=== PATIENT | female | born 1990 | race Caucasian/White ===

== ENCOUNTER 2016-10-27 01:02 | Emergency (ER) | payer OTHER ==
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
--- NOTE | 2016-10-27 05:42 | ED ORDER SUMMARY ---
..... Patient: VERONIKA LAZCANO OrderSheet [facility] VisitID: [id number] [place] [address] 26y, F Registration Date/Time: 10/27/2016 ORDER SHEET Weight: 56.6 kg (stated) Allergies: Penicillins GENERAL ORDERS: CBC w Diff Urgent (10/27/2016 Ronn TEJEDA) (Ack 1:47 CHagerty ER Therapeutic Specialist) (2:00 CFalkner R.N.) CMP Urgent (10/27/2016 Ronn TEJEDA) (Ack 1:47 CHagerty ER Therapeutic Specialist) (2:00 CFalkner R.N.) UA-Culture if indicated Urgent (10/27/2016 Ronn TEJEDA) (Ack 1:47 Jose ER Therapeutic Specialist) (2:00 CFalkner R.N.) Amylase Urgent (10/27/2016 Ronn TEJEDA) (Ack 1:47 CHagmike ER Therapeutic Specialist) (2:00 CFalkner R.N.) Lipase Urgent (10/27/2016 Ronn TEJEDA) (Ack 1:47 CHagmike ER Therapeutic Specialist) (2:00 CFalkner R.N.) Urine Urgent (10/27/2016 Ronn TEJEDA) (Ack 1:47 CHagmike ER Therapeutic Specialist) (2:00 CFalkner R.N.) Urine Drug Screen Urgent (10/27/2016 Ronn TEJEDA) (Ack 1:47 CHagmike ER Therapeutic Specialist) (2:00 CFalkner R.N.) Ethyl Alcohol Urgent (:10/27/2016 Ronn TEJEDA) (Ack 1:47 Jose ER Therapeutic Specialist) (2:00 CFalkner R.N.) Acetaminophen Level Urgent (10/27/2016 Ronn TEJEDA) (Ack 1:47 CHagmike ER Therapeutic Specialist) (2:00 CFalkner R.N.) Salicylate Level Urgent (10/27/2016 Ronn TEJEDA) (Ack 1:47 CHagmike ER Therapeutic Specialist) (2:00 CFalkner R.N.) Suicide Precautions (01:41 10/27/2016 Ronn TEJEDA) (Ack 1:47 CHagmike ER Therapeutic Specialist) (2:01 Mandy Emery) EKG - ER Stat (02:09 10/27/2016 Ronn TEJEDA) (2:18 IJurca ER Tech1) MEDICATION ORDERS: IV FLUIDS: ORDER SHEET NOTES: [Electronically signed by Lily Elder R.N. (06:54 10/27/2016)] [Electronically signed by Chidi Bowman MD (10:19 11/15/2016)] [Electronically locked/signed by Lily Elder R.N. (06:54 10/27/2016)]
--- NOTE | 2016-10-27 05:42 | ED ORDER SUMMARY ---
..... Patient: VERONIKA LAZCANO OrderSheet [facility] VisitID: [id number] [place] [address] 26y, F Registration Date/Time: 10/27/2016 ORDER SHEET Weight: 56.6 kg (stated) Allergies: Penicillins GENERAL ORDERS: CBC w Diff Urgent (10/27/2016 Ronn TEJEDA) (Ack 1:47 CHagerty ER Dynamometer Tester Engine) (2:00 CFalkner R.N.) CMP Urgent (10/27/2016 Ronn TEJEDA) (Ack 1:47 CHagerty ER Dynamometer Tester Engine) (2:00 CFalkner R.N.) UA-Culture if indicated Urgent (10/27/2016 Ronn TEJEDA) (Ack 1:47 Jose ER Dynamometer Tester Engine) (2:00 CFalkner R.N.) Amylase Urgent (10/27/2016 Ronn TEJEDA) (Ack 1:47 CHagmike ER Dynamometer Tester Engine) (2:00 CFalkner R.N.) Lipase Urgent (10/27/2016 Ronn TEJEDA) (Ack 1:47 CHagmike ER Dynamometer Tester Engine) (2:00 CFalkner R.N.) Urine Urgent (10/27/2016 Ronn TEJEDA) (Ack 1:47 CHagmike ER Dynamometer Tester Engine) (2:00 CFalkner R.N.) Urine Drug Screen Urgent (10/27/2016 Ronn TEJEDA) (Ack 1:47 CHagmike ER Dynamometer Tester Engine) (2:00 CFalkner R.N.) Ethyl Alcohol Urgent (:10/27/2016 Ronn TEJEDA) (Ack 1:47 Jose ER Dynamometer Tester Engine) (2:00 CFalkner R.N.) Acetaminophen Level Urgent (10/27/2016 Ronn TEJEDA) (Ack 1:47 CHagmike ER Dynamometer Tester Engine) (2:00 CFalkner R.N.) Salicylate Level Urgent (10/27/2016 Ronn TEJEDA) (Ack 1:47 CHagmike ER Dynamometer Tester Engine) (2:00 CFalkner R.N.) Suicide Precautions (01:41 10/27/2016 Ronn TEJEDA) (Ack 1:47 CHagmike ER Dynamometer Tester Engine) (2:01 Mandy Emery) EKG - ER Stat (02:09 10/27/2016 Ronn TEJEDA) (2:18 IJurca ER Tech1) MEDICATION ORDERS: IV FLUIDS: ORDER SHEET NOTES: [Electronically signed by Lily Elder R.N. (06:54 10/27/2016)] [Electronically signed by Chidi Bowman MD (10:19 11/15/2016)] [Electronically locked/signed by Lily Elder R.N. (06:54 10/27/2016)]
--- NOTE | 2016-11-15 10:19 | ED MED RECONCILIATION SUMMARY ---
Patient: VERONIKA LAZCANO Medication Reconciliation Report [facility] VisitID: [id number] [address] [place] [address] 26y, F Registration Date/Time: 10/27/2016 Weight: 56.6 kg Height/Length: 61 in. BMI: 23.6 ALLERGIES: Penicillins The patient's Home Medications are listed below: NONE. The source(s) of the original Home Medication information: Not obtained. The following Medications were given to the patient in the Emergency Department: None. The following Medications were prescribed to the patient: None.
--- NOTE | 2016-11-15 10:19 | ED MED RECONCILIATION SUMMARY ---
Patient: VERONIKA LAZCANO Medication Reconciliation Report [facility] VisitID: [id number] [address] [place] [place] [address] 26y, F Registration Date/Time: 10/27/2016 Weight: 56.6 kg Height/Length: 61 in. BMI: 23.6 ALLERGIES: Penicillins The patient's Home Medications are listed below: NONE. The source(s) of the original Home Medication information: Not obtained. The following Medications were given to the patient in the Emergency Department: None. The following Medications were prescribed to the patient: None.
--- NOTE | 2016-11-15 10:19 | ED MAR SUMMARY ---
..... Medication Administration Record [facility] [address] [place], [place] [id number] Patient: VERONIKA LAZCANO Visit ID: [id number] 26y, F Weight: 56.6 kg Height/Length: 61 in BMI: 23.6 ALLERGIES: Penicillins
--- NOTE | 2016-11-15 10:19 | ED DISCHARGE INSTRUCTIONS ---
Patient: VERONIKA LAZCANO General Instructions [facility] VisitID: [id number] [place] [address] 26y, F Registration Date/Time: 10/27/2016 Anxiety reaction. Depression. INSTRUCTIONS Stay with responsible adult family member (or other responsible adult). No alcohol. (discontinue the use of marijuana was discussed). Warnings: Further evaluation is necessary. GENERAL WARNINGS: Return or contact your physician immediately if your condition worsens or changes unexpectedly, if not improving as expected, or if other problems arise. Follow-up: Follow up with a psychiatrist [facility] Saturday in two days. Call for an appointment. Understanding of the discharge instructions verbalized by patient. ADDITIONAL INFORMATION Panic Attack A panic attack is an extreme fear reaction that comes on for no apparent reason. Symptoms may include pounding or racing heartbeat, shortness of breath, dizziness, weakness and sweating. There is usually a fear that something terrible will happen or that you may . The attack may last a few minutes up to a few hours. Between attacks things will seem quite normal. This condition has a psychological cause and can be treated with the help of a therapist or psychiatrist. Medication is often used and can be very helpful for this problem. Home Care: Try to identify the sources of stress in your life. It may not be obvious! These may include: Daily hassles of life which pile up (traffic jams, missed appointments, car troubles, etc.). Major life changes, both good (new baby, job promotion) and bad (loss of job, loss of loved one). Overload: feeling that you have too many responsibilities and can't take care of everything at once. Helplessness: feeling like your problems are too much for you to handle. Notice how your body reacts to stress. Learn to listen to your body signals so that you can take action before the stress becomes severe. When possible, AVOID or REDUCE THE CAUSE OF STRESS. Avoid hassles, limit the amount of change that is happening in your life at one time or take a break when you feel overloaded. Unfortunately, many stressful situations cannot be avoided. Therefore, it is necessary to LEARN HOW TO MANAGE STRESS better. There are many proven methods that work and will reduce your anxiety. These include simple things like exercise, good nutrition and adequate rest. Also, there are certain techniques that are helpful: relaxation and breathing exercises, visualization, biofeedback, meditation or simply taking some time-out to clear your mind. For more information about this, consult your doctor or go to a local bookstore and review the many books and tapes available on this subject. Follow Up with your doctor or a therapist as advised. Get Prompt Medical Attention if any of the following occur: Worsening of your symptoms to the point of feeling [id number] A change in the type of pain: if it feels different, becomes more severe, lasts longer, or begins to spread into your shoulder, arm, neck, jaw or back Shortness of breath or increased pain with breathing Increasing feeling of weakness or dizziness Fainting Cough with dark colored sputum (phlegm) or blood Fever of 100.4F (38C) or higher, or as directed by your healthcare provider Swelling, pain or redness in one leg Depression Depression is one of the most common mental health problems today. It is not just a state of unhappiness or sadness. It is a true disease. The cause seems to be related to a decrease in chemicals that transmit signals in the brain. Having a family history of depression, alcoholism or suicide increases the risk. Chronic illness, chronic pain, migraine headaches and high emotional stress also increase the risk. Depression can cause many different symptoms, such as: -- Loss of appetite -- Over-eating -- Not being able to sleep -- Sleeping too much -- Tiredness not related to physical exertion -- Restlessness or irritability -- Slowness of movement or speech -- Feeling depressed or withdrawn -- Loss of interest in things you once enjoyed -- Difficulty in concentrating, poor memory, have trouble making decisions -- Thoughts of harming or killing oneself, or thoughts that life is not worth living -- Low self-esteem The best treatment for depression is a combination of medicine and psychotherapy. Antidepressant medicines can reduce suffering and can improve the ability to function during the depressed period. Therapy can offer emotional support and help you understand emotional factors that may be causing the depression. Home Care: 1) Be kind to yourself. Make it a point to do things that you enjoy (gardening, walking in nature, going to a movie, etc.). Reward yourself for small successes. 2) Take care of your physical body. Eat a balanced diet (low in saturated fat and high in fruits and vegetables). Establish an exercise plan at least 3 times a week for 30 minutes. Even mild-moderate exercise (like brisk walking) can make you feel better. 3) Avoid alcohol, which can make depression worse. Follow-Up with your doctor as advised. It is important to keep in contact with a health care provider until your symptoms begin to improve. Get Prompt Medical Attention if any of the following occur: -- Feeling extreme depression, fear, anxiety, or anger toward yourself or others -- Feeling out of control -- Feeling that you may try to harm yourself or another -- Hearing voices that others do not hear -- Seeing things that others do not see -- Cant sleep or eat for 3 days in a row You have been given the following additional information: Panic Attack Depression Stay with responsible adult family member (or other responsible adult). (Electronically signed by Chidi Bowman MD 11/15/2016 10:19)
--- NOTE | 2016-11-15 10:19 | ED MAR SUMMARY ---
..... Medication Administration Record [facility] [address] [place], [place] [id number] Patient: VERONIKA LAZCANO Visit ID: [id number] 26y, F Weight: 56.6 kg Height/Length: 61 in BMI: 23.6 ALLERGIES: Penicillins
== END 2016-10-27 06:05 | disposition home or self-care (01) ==
LOC: ED SRH 01:02
DX: F41.1 Generalized anxiety disorder (principal); F32.9 Major depressive disorder, single episode, unspecified; F17.210 Nicotine dependence, cigarettes, uncomplicated
CPT/HCPCS: 90004; 90100; 92010; 92235; 92530; 92760; 92761; 92762; 92763; 92764; 92765; 92766; 92767; 92780; 93070; 95059; 97000